=== PATIENT | female | born 1965 | race Caucasian/White ===

== ENCOUNTER 2018-08-09 12:42 | Day surgery (SDC) | payer OTHER ==
[2018-08-08 12:07] VITALS: BMI 31.7
[2018-08-09] MEDS ORDERED: oxyCODONE HCL 5 MG TABLET PO PRN (13:52)
[2018-08-09] MEDS ORDERED: ONDANSETRON 4 MG/2 ML VIAL IVPUSH PRN (13:52)
[2018-08-09] MEDS ORDERED: LACTATED RINGERS SOLUTION 1,000 ML IV SCH (14:00)
--- NOTE | 2018-08-09 14:26 | HP ---
Admitting History and Physical - Admission Chief Complaint: Abnormal sonogram History of Present Illness: 52 yo with sonogram showing evidence of endometrial polyp, is pre op for D&C Hysteroscopy. History Source: Patient Limitations to Obtaining History: No Limitations - Past Medical History ...LMP: 07/25/18 ...: No - Past Surgical History Past Surgical History: Yes: None - Smoking History Smoking history: Never smoked - Alcohol/Substance Use Hx Alcohol Use: No Home Medications - Allergies Allergies/Adverse Reactions: Allergies Allergy/AdvReac Type Severity Reaction Status Date / Time No Known Allergies Allergy Verified 08/09/18 13:32 - Home Medications Home Medications: Ambulatory Orders Albuterol Sulfate [Proair Hfa] 8.5 gm IH PRN 08/08/18 Fluticasone Propionate [Flovent Diskus] 100 mcg IH PRN 08/08/18 Family Disease History - Family Disease History Family History: Unremarkable Review of Systems - Review of Systems Constitutional: reports: No Symptoms Eyes: reports: No Symptoms HENT: reports: No Symptoms Neck: reports: No Symptoms Cardiovascular: reports: No Symptoms Respiratory: reports: No Symptoms Gastrointestinal: reports: No Symptoms Genitourinary: reports: No Symptoms Breasts: reports: No Symptoms Reported Musculoskeletal: reports: No Symptoms Integumentary: reports: No Symptoms Neurological: reports: No Symptoms Endocrine: reports: No Symptoms Hematology/Lymphatic: reports: No Symptoms Psychiatric: reports: No Symptoms Pain Intensity: 0 Physical Examination Vital Signs: Vital Signs Temperature 98.1 F 08/09/18 13:27 Pulse Rate 98 H 08/09/18 13:27 Respiratory Rate 20 08/09/18 13:27 Blood Pressure 145/85 08/09/18 13:27 O2 Sat by Pulse Oximetry (%) 99 08/09/18 13:26 Constitutional: Yes: Well Nourished Eyes: Yes: Conjunctiva Clear HENT: Yes: Atraumatic Neck: Yes: Supple Cardiovascular: Yes: Regular Rate and Rhythm Respiratory: Yes: Regular Gastrointestinal: Yes: Normal Bowel Sounds Musculoskeletal: Yes: WNL Extremities: Yes: WNL Neurological: Yes: Alert, Oriented ...Motor Strength: WNL Psychiatric: Yes: Alert, Oriented Problem List - Problems (1) Endometrial polyp Code(s): N84.0 - POLYP OF CORPUS UTERI Assessment/Plan Endometrial polyp Pre op for D&C Hysteroscopy Consent signed Anesthesia to see patient
[2018-08-09] MEDS ORDERED: PROPOFOL 20 ML ONE (14:27)
[2018-08-09] MEDS ORDERED: DEXAMETHASONE SOD PHOSPHATE 4 MG/1 ML VIAL ONE (14:35)
--- NOTE | 2018-08-09 14:56 | OP ---
Operative Note - Note: Operative Date: 08/09/18 Pre-Operative Diagnosis: Endometrial polyp Operation: D&C Hysteroscopy Findings: Endometrial polyp Post-Operative Diagnosis: Same as Pre-op Surgeon: Veronika Doe Anesthesia: General Specimens Removed: Endometrial curettings Estimated Blood Loss (mls): 2 Operative Report Dictated: Yes
--- NOTE | 2018-08-09 16:09 | OP ---
DATE OF OPERATION: 08/09/2018 PREOPERATIVE DIAGNOSIS: Endometrial polyp. POSTOPERATIVE DIAGNOSIS: Endometrial polyp. PROCEDURE: Dilation and curettage hysteroscopy. SURGEON: Veronika Doe M.D. ANESTHESIA: General anesthesia. COMPLICATIONS: None. ESTIMATED BLOOD LOSS: Less than 5 mL. DESCRIPTION OF PROCEDURE: Patient was taken to the waiting room, where general anesthesia was administered. She was placed in lithotomy position. Patient was then prepped and draped in proper sterile fashion. A weighted speculum was placed in the vagina. The anterior lip of the cervix was grasped with a single-toothed tenaculum. A 5-mm hysteroscope was then gently introduced into the uterine cavity. The cavity was visualized. There was a polyp noted. Then using a polyp forcep, the polyp was removed and a sharp curettage was then performed. Then the instruments were removed. The patient was taken out of lithotomy position. She was taken to PACU in stable condition. Pathology, endometrial curettings. VERONIKA DOE M.D. [id number] MTDD
[2018-08-09 17:16] VITALS: BP 130/70
[2018-08-09 17:19] VITALS: PULSE 71; TEMP 97.8
--- NOTE | 2018-08-13 15:21 | PATH ---
Surgical Pathology Report Patient Name: THOMPSON PATEL [facility] [place]. Rec. #: [id number] /Age/Gender: 1965 (Age: 52) / F Account: [id number] Location: [facility] SUR[facility] Taken: 08/09/2018 Received: 08/10/2018 Reported: 08/13/2018 Physicians: Veronika Doe M.D. Specimen(s) Received ENDOMETRIAL CURETTINGS Clinical History Endometrial polyp Final Diagnosis ENDOMETRIAL CURETTINGS, DILATION AND CURETTAGE: SCANT FRAGMENTS OF ENDOCERVICAL MUCOSA WITH SQUAMOUS METAPLASIA ADMIXED WITH MUCUS AND BLOOD. NO ENDOMETRIAL TISSUE IDENTIFIED. Electronically Signed Sheba De Los Santos M.D. Gross Description Received in formalin labeled "endometrial curettings," is a 1.5 x 1.2 x 0.2 cm aggregate of blood-tinged mucus, possibly containing soft tissue fragments. The formalin is filtered and the specimen is entirely submitted in one cassette. 08/10/2018 saudi08/10/2018
== END 2018-08-09 17:20 | disposition home or self-care (01) ==
LOC: JASU-SURG 12:42
PROVIDERS: ATTEND Obstetrics & Gynecology
PROC: 0UDB7ZX Extraction of Endometrium, Via Natural or Artificial Opening, Diagnostic (ICD-10-PCS; principal; 2018-08-09 14:30)
PROC: 0UJD8ZZ Inspection of Uterus and Cervix, Via Natural or Artificial Opening Endoscopic (ICD-10-PCS; 2018-08-09 14:30)
DX: N84.0 Polyp of corpus uteri (principal)
CPT/HCPCS: 84703; 88305-TC; 94760

== ENCOUNTER 2021-01-10 04:23 | Emergency (ER) | payer OTHER ==
[2021-01-10 04:57] VITALS: BMI 31.1
[2021-01-10] MEDS ORDERED: predniSONE 20 MG TABLET (UD) PO ONE (06:02)
[2021-01-10] MEDS ORDERED: MONTELUKAST NA 5 MG TAB.CHEW PO ONE (06:05)
[2021-01-10] MEDS ORDERED: ALBUTEROL SO4 2.5/IPRATROPIUM 0.5 INH SOL 3 ML VIAL.NEB. NEB ONE ×3 (06:19→07:46)
[2021-01-10] MEDS ORDERED: MONTELUKAST NA 10 MG TABLET ONE (06:20)
[2021-01-10] MEDS ORDERED: predniSONE 20 MG TABLET (UD) ONE (06:20)
[2021-01-10] MEDS: ALBUTEROL SO4 2.5/IPRATROPIUM 0.5 INH SOL 3 ML VIAL.NEB. NEB SCH ×2 (06:37→07:04)
[2021-01-10 07:58] VITALS: BP 156/79; PULSE 84; TEMP 98.6
== END 2021-01-10 09:12 | disposition home or self-care (01) ==
LOC: JER 04:23
PROC: 3E0F7GC Introduction of Other Therapeutic Substance into Respiratory Tract, Via Natural or Artificial Opening (ICD-10-PCS; principal; 2021-01-10)
DX: J45.909 Unspecified asthma, uncomplicated (principal)
CPT/HCPCS: 71045-TC-FY; 93005; 93010; 99284-25; C9803; U0003; U0005

== ENCOUNTER 2023-11-30 04:44 | Day surgery (SDC) | payer OTHER ==
[2023-11-28 15:50] VITALS: BMI 31.5
[2023-11-30 09:40] VITALS: TEMP 98
[2023-11-30 10:28] VITALS: BP 131/74; PULSE 82; RESP 18
== END 2023-11-30 10:45 | disposition home or self-care (01) ==
LOC: JASU-ENDO 04:44
PROVIDERS: ATTEND Internal Medicine Gastroenterology
PROC: 06LY7CC Occlusion of Hemorrhoidal Plexus with Extraluminal Device, Via Natural or Artificial Opening (ICD-10-PCS; 2023-11-30)
PROC: 0DJD8ZZ Inspection of Lower Intestinal Tract, Via Natural or Artificial Opening Endoscopic (ICD-10-PCS; principal; 2023-11-30 08:30)
DX: Z12.11 Encounter for screening for malignant neoplasm of colon (principal); K64.1 Second degree hemorrhoids